=== PATIENT | male | born 1990 | race Caucasian/White ===

== ENCOUNTER 2017-07-17 08:13 | Emergency (ER) | payer OTHER ==
--- NOTE | 2017-07-17 10:06 | UC ---
Rectal Pain HPI - HPI Summary HPI Summary: Pt presents with anal pain and BRBPR. Over the last 5-6 months he has had anal pain and thinks he has hemorrhoids. He has been managing this with OTC creams. Over the last 5 days he has noticed bright red blood on the tissue paper after wiping when having a BM. His BMs have been usual for him, not hard and rarely strains. He does have a family history of colon cancer. He denies pain, fever, chills, SOB, chest pain, abdominal pain, n/v/d/c, or body aches - History Of Current Complaint Chief Complaint: UCGeneralIllness Stated Complaint: RECTAL PAIN Time Seen by Provider: 07/17/17 10:05 Hx Obtained From: Patient Timing: Constant Severity Initially: Mild Severity Currently: Mild Pain Intensity: 2 Pain Scale Used: 0-10 Numeric - Allergies/Home Medications Allergies/Adverse Reactions: Allergies Allergy/AdvReac Type Severity Reaction Status Date / Time Penicillins Allergy Unknown Unknown Verified 07/17/17 08:29 Reaction Details PMH/Surg Hx/FS Hx/Imm Hx Previously Healthy: Yes - Surgical History Surgical History: Yes Surgery Procedure, Year, and Place: BENIGN GROWTH ON CHEST REMOVED 2009. appendix at age 10 - Social History Occupation: Employed Full-time Lives: Alone Alcohol Use: Rare Substance Use Type: None Smoking Status (MU): Never Smoked Tobacco - Immunization History Most Recent Influenza Vaccination: not this year Review of Systems Constitutional: Negative Skin: Negative Respiratory: Negative Cardiovascular: Negative Gastrointestinal: Negative All Other Systems Reviewed And Are Negative: Yes Physical Exam Triage Information Reviewed: Yes Appearance: Well-Appearing, No Pain Distress, Well-Nourished Vital Signs: Initial Vital Signs Temp 97.5 F 07/17/17 08:30 Pulse 74 07/17/17 08:30 Resp 16 07/17/17 08:30 BP 144/81 07/17/17 08:30 Pulse Ox 100 07/17/17 08:30 Vital Signs Reviewed: Yes Respiratory: Positive: Chest non-tender, Lungs clear, Normal breath sounds Cardiovascular: Positive: RRR, No Murmur, Pulses Normal Abdomen Description: Positive: Nontender, No Organomegaly, Soft. Negative: CVA Tenderness (R), CVA Tenderness (L), Distended, Guarding Bowel Sounds: Positive: Present Neurological: Positive: Alert Psychological: Positive: Age Appropriate Behavior - Additional Comments Rectal exam: ~4mm external hemorrhoid at the 5 o'clock position. ~2mm external hemorrhoid at the 11 o'clock position. Both at TTP. No bleeding. Internal exam revealed no masses, internal hemorrhoids, or stool in the vault. Rectal Pain Course/Dx - Course Course Of Treatment: Hemorrhoids external. Anusol prn. I offered him a referral to general surgery, but he declined as he has a new pt appt with a new pcp coming in 2 weeks and will discuss this and potential further investigation ( colonoscopy) at that time. - Differential Dx/Diagnosis Provider Diagnoses: External hemorrhoid Discharge - Discharge Plan Condition: Stable Disposition: HOME Prescriptions: Hydrocortisone SUPP* [Anusol HC Supp*] 25 mg TX BID PRN #14 supp PRN Reason: pain Patient Education Materials: Hemorrhoids (ED) Referrals: No Primary Care Phys,NOPCP [Primary Care Provider] - Additional Instructions: If you develop a fever, shortness of breath, chest pain, new or worsening symptoms - please call your PCP or go to the ED. Your blood pressure was high at todays visit. Please see your primary provider within 4 weeks for recheck and re-evaluation.
[2017-07-17 10:29] VITALS: BP 127/97
== END 2017-07-17 10:26 | disposition home or self-care (01) ==
LOC: UCEAST 08:13
DX: K64.4 Residual hemorrhoidal skin tags (principal)
CPT/HCPCS: 99202; G0463

== ENCOUNTER 2017-10-13 07:05 | Emergency (ER) | payer OTHER ==
[2017-10-13 07:15] VITALS: BP 130/72
--- NOTE | 2017-10-13 08:23 | RAD ---
INDICATION: Abdominal pain evaluate for perforation. COMPARISON: There are no prior studies available for comparison. TECHNIQUE: Supine and upright views of the abdomen were obtained. FINDINGS: There is a paucity of bowel gas present limiting the study. Air is seen within the stomach which is nondistended. There is a small amount of air within the descending and rectosigmoid colon which are nondistended. No free intraperitoneal air is seen. IMPRESSION: NO EVIDENCE FOR OBSTRUCTION OR FREE INTRAPERITONEAL AIR.
--- NOTE | 2017-10-13 08:46 | UC ---
Brendon Gibbons Rebecca, scribed for [facility],Laz Christian MD on 10/13/17 at 0728 . Abdominal Pain Male HPI - HPI Summary HPI Summary: In Room: Pt is a 27 y/o M who presents to [facility] c/o abdominal pain. Sx began about 2.5 weeks ago, gradually worsening, with the pain initially being described as dull and burning, though this morning it was sharp. Currently, pain is described as cramping and on triage, pain was moderate, ranked 5/10. Pain is located to the left side of the umbilicus, moving up toward the mid- left thorax without radiation to the back. He has no pain with ambulation or jumping in the air, it is unchanged by sitting and aggravated by alcohol. Additionally c/o diarrhea, intermittent nausea and 1 episode of vomiting this morning. Has had diarrhea today and throughout this illness, he has had both diarrhea and normal stool. Denies fever, penile discharge, and blood in stool. No recent travel or abnormal food. 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 Pt was evaluated by his PCP 3 days ago and given a Dx of gastritis with Rx for Ranitidine BID. PSHx yasmine. : 27 year old male. Vital signs stable. BP 130/72, pulse ox 100, temperature 97.8. Rare alcohol, no tobacco, no smoking. Visit history noncontributory. Status post appendicitis. Nurse's: Stomach pain x2 weeks, + nausea, constant diarrhea x2 weeks (4-5 bowel movements a day), went to PCP Sunday, diagnosed with Gastritis given ranitidine with no relief. Started with Nausea today. - History of Current Complaint Chief Complaint: UCAbdominalPain Stated Complaint: ABDOMINAL COMPLAINT Time Seen by Provider: 10/13/17 07:17 Hx Obtained From: Patient Onset/Duration: Lasting Weeks - 2.5 weeks, Still Present Severity Currently: Moderate Pain Intensity: 5 Pain Scale Used: 0-10 Numeric Location: Other - To the left of the umbilicus and moving toward the mid-left thorax. Radiates: No Character: Burning, Cramping - currently, Dull, Sharp - this morning Aggravating Factor(s): Other - Alcohol Alleviating Factor(s): Nothing Associated Signs And Symptoms: Positive: Nausea, Vomiting, Diarrhea - Allergies/Home Medications Allergies/Adverse Reactions: Allergies Allergy/AdvReac Type Severity Reaction Status Date / Time Penicillins Allergy See Comment Verified 10/13/17 07:16 Home Medications: Home Medications raNITIdine HCl [Zantac] 1 tab PO BID 10/13/17 [History Confirmed 10/13/17] PMH/Surg Hx/FS Hx/Imm Hx - Additional Past Medical History Additional PMH: NEGATIVE PMHx: HTN Respiratory History: Asthma - As a child - Surgical History Surgical History: Yes Surgery Procedure, Year, and Place: BENIGN GROWTH ON CHEST REMOVED 2009. appendix at age 10 - Family History Known Family History: Positive: Other - Colon [place] (aunt) - Social History Alcohol Use: Rare Substance Use Type: None Smoking Status (MU): Never Smoked Tobacco - Immunization History Most Recent Influenza Vaccination: not this year Most Recent Tetanus Shot: UTD Review of Systems Constitutional: Negative Skin: Negative Eyes: Negative ENT: Negative Respiratory: Negative Cardiovascular: Negative Gastrointestinal: Abdominal Pain, Vomiting, Diarrhea, Nausea Genitourinary: Negative Motor: Negative Neurovascular: Negative Musculoskeletal: Negative Neurological: Negative Psychological: Negative All Other Systems Reviewed And Are Negative: Yes - Comments Additional Review of Systems Comments: POSITIVE: Abdominal pain, N/V/D. NEGATIVE: Fever, penile discharge, blood in stool. Physical Exam - Summary Physical Exam Summary: Appearance: The patient is well-appearing, is in no pain distress, and is well- nourished. Eyes: Conjunctiva are clear. ENT: The hearing is grossly normal, the pharynx is normal, and the TMs are normal. There is no muffled or hoarse voice. Neck: The neck is supple and there is no lymphadenopathy. Respiratory: The chest is nontender. The lungs are clear, there are normal breath sounds, and there is no respiratory distress. Cardiovascular: Heart is regular rate and rhythm. There is no murmur. Abdomen: Grossly normal to inspection. RLQ appendectomy scar, well healed. Bowel sounds present. Tender to percussion and palpation, left upper quadrant. Negative guarding, rigidity. No peritoneal signs, no CVA tenderness. Bowel sounds: present Musculoskeletal: Strength is intact. The patient moves all extremities. Neurological: The patient is alert. Psychological: The patient displays age appropriate behavior Skin: Negative for rashes. Triage Information Reviewed: Yes Vital Signs: Initial Vital Signs Temp 97.8 F 10/13/17 07:10 Pulse 69 10/13/17 07:10 Resp 18 10/13/17 07:10 BP 130/72 10/13/17 07:10 Pulse Ox 100 10/13/17 07:10 Vital Signs Reviewed: Yes Diagnostics - Radiology Abdomen XR Xray Interpretation: No Acute Changes - NO EVIDENCE FOR OBSTRUCTION OR FREE INTRAPERITONEAL AIR. Radiology Interpretation Completed By: Radiologist Re-Evaluation - Re-Evaluation First Eval Re-Evaluation Time: 08:33 Comment: Discussed XR results with the patient. The patient is comfortable with no acute complaints. Abd Pain Male Course/Dx - Course Course Of Treatment: Pt with abdominal pain, presumed gastritis, on Ranitidine for 3 days. Pain has stayed the same or increased. He also has diarrhea and some nausea. His abdominal XR shows no perforation or obstruction. It may be that he has not been on the Ranitidine long enough, but I am going to assume that this is a failure of Ranitidine, BID, and start him on a PPI. He has been instructed to go to the ER for any increased symptoms and to follow up with his doctor for possible referral to a GI for further evaluation and treatment as needed. Patient is Urgent/Emergent. BP elevated due to current condition w/o HTN in past medical history. Medications have been included in the original chart and reviewed. Allergy noted. - Differential Dx/Clinical Impression Differential Diagnosis/HQI/PQRI: Other - Gastritis, ulcer, GERD Provider Diagnoses: Gastritis Discharge - Sign-Out/Discharge Documenting (check all that apply): Discharge - Discharge - Discharge Plan Condition: Stable Disposition: HOME Prescriptions: Omeprazole CAP* [Prilosec CAP* 20 MG] 20 mg PO DAILY #30 cap.dr [place] 1 Patient Education Materials: Peptic Ulcer (ED), Gastritis (ED) Referrals: No Primary Care Phys,NOPCP [Primary Care Provider] - Additional Instructions: Your blood pressure reading today was 130/72, indicating PREHYPERTENSION. Follow -up with your primary care provider within 4 weeks for blood pressure readings and further evaluation, IF NEEDED. PLEASE SEEK CARE AT THE EMERGENCY DEPARTMENT IF SYMPTOMS WORSEN OR IF NEW SYMPTOMS DEVELOP. FOLLOW UP WITH YOUR PRIMARY CARE PHYSICIAN. WE DISCUSSED: 1. You have excess acid in your stomach. You may have gastritis or an ulcer. You may need to be seen by a specialist to diagnose this. 2. Begin prilosec, once a day for 30 days. If you have continued pain, you may need to increase this dose after consulting with your doctor. 3. Follow up with your doctor within the next 4 weeks. Sooner if increased pain or if you're not improving in 2 weeks. Also recheck for continued diarrhea in 7 days. 4. Try antacid after meals. 5. Go to ED for increased symptoms, blood in stool, temperature, abdominal pain. - Billing Disposition and Condition Condition: STABLE Disposition: HOME The documentation as recorded by the Brendon mckeon Rebecca accurately reflects the service I personally performed and the decisions made by me, Laz Caro MD.
== END 2017-10-13 08:50 | disposition home or self-care (01) ==
LOC: UCEAST 07:05
DX: K29.70 Gastritis, unspecified, without bleeding (principal); Z88.0 Allergy status to penicillin
CPT/HCPCS: 74019; 99212; G0463

== ENCOUNTER 2017-10-23 11:49 | Emergency (ER) | payer OTHER ==
[2017-10-23 12:01] VITALS: BP 124/82
--- NOTE | 2017-10-23 13:12 | UC ---
Abdominal Pain Male HPI - HPI Summary HPI Summary: Patient presents with about 4 weeks of crampy left lower quadrant pain and intermittent watery diarrhea. Patient was seen here 10 days ago and given omeprazole which patient states worked for a few days. Prior to that he was seen by his PCP and given ranitidine. Patient reports he was diagnosed with gastritis and has tried to modify his diet but his symptoms are persistent. He feels gassy. Denies fever or vomiting but does have some nausea. Bowel movements are sometimes normal and sometimes watery. No blood per rectum. He has an appointment with his PCP tomorrow but decided to come in today for earlier eval. - History of Current Complaint Chief Complaint: UCAbdominalPain Stated Complaint: ABD PAIN Time Seen by Provider: 10/23/17 13:10 Hx Obtained From: Patient Onset/Duration: Gradual Onset, Lasting Weeks, Still Present Severity Initially: Moderate Severity Currently: Moderate Pain Intensity: 4 Pain Scale Used: 0-10 Numeric Location: Discrete At: LLQ Radiates: No Character: Cramping Aggravating Factor(s): Food Alleviating Factor(s): Nothing Associated Signs And Symptoms: Positive: Decreased Appetite, Nausea, Diarrhea. Negative: Fever, Back Pain, Constipation, Blood in Stool, Urinary Symptoms, Vomiting, Penile Discharge - Allergies/Home Medications Allergies/Adverse Reactions: Allergies Allergy/AdvReac Type Severity Reaction Status Date / Time Penicillins Allergy See Comment Verified 10/13/17 07:16 PMH/Surg Hx/FS Hx/Imm Hx Respiratory History: Asthma - Surgical History Surgical History: Yes Surgery Procedure, Year, and Place: BENIGN GROWTH ON CHEST REMOVED 2009. appendix at age 10 - Family History Known Family History: Positive: Other - Colon [place] (aunt) Family History: MATERNAL SIDE UNKNOWN - Social History Alcohol Use: Rare Substance Use Type: None Smoking Status (MU): Never Smoked Tobacco - Immunization History Most Recent Influenza Vaccination: not this year Most Recent Tetanus Shot: UTD Review of Systems Constitutional: Negative Respiratory: Negative Cardiovascular: Negative Gastrointestinal: Abdominal Pain, Diarrhea, Nausea Genitourinary: Negative All Other Systems Reviewed And Are Negative: Yes Physical Exam Triage Information Reviewed: Yes Appearance: Well-Appearing, No Pain Distress, Well-Nourished Vital Signs: Initial Vital Signs Temp 97.8 F 10/23/17 11:55 Pulse 68 10/23/17 11:55 Resp 18 10/23/17 11:55 BP 124/82 10/23/17 11:55 Pulse Ox 100 10/23/17 11:55 Vital Signs Reviewed: Yes Eyes: Positive: Conjunctiva Clear ENT: Positive: Hearing grossly normal Neck: Positive: Supple Respiratory Exam: Normal Cardiovascular Exam: Normal Abdomen Description: Positive: Soft, Other: - MILDLY TTP LLQ. NO REBOUND OR RIGIDITY. Negative: CVA Tenderness (R), CVA Tenderness (L), Distended, Guarding Bowel Sounds: Positive: Hyperactive Musculoskeletal: Positive: No Edema Neurological: Positive: Alert Psychological: Positive: Age Appropriate Behavior Skin: Negative: rashes Abd Pain Male Course/Dx - Differential Dx/Clinical Impression Provider Diagnoses: 1. ABDOMINAL PAIN, NOS. 2. DIARRHEA Discharge - Sign-Out/Discharge Documenting (check all that apply): Discharge - Discharge Plan Condition: Stable Disposition: HOME Patient Education Materials: Abdominal Pain (ED) Referrals: Mahnaz Camacho MD [Medical Doctor] - (keep ypur appt tomorrow) Additional Instructions: Stool kit provided today. Bring a sample in for testing. In the meantime call GI to schedule an appointment for follow-up. You would likely benefit from specialist evaluation and possibly imaging/endoscopy. ENSURE ADEQUATE HYDRATION. CLEAR LIQUIDS, BLAND DIET. AVOID CAFFEINE, DAIRY, GREASY, SPICY FOODS. [facility] Address: [address], [place] [address] - Billing Disposition and Condition Condition: STABLE Disposition: HOME
== END 2017-10-23 13:40 | disposition home or self-care (01) ==
LOC: UCEAST 11:49
DX: R10.32 Left lower quadrant pain (principal); R19.7 Diarrhea, unspecified; J45.909 Unspecified asthma, uncomplicated; Z88.0 Allergy status to penicillin
CPT/HCPCS: 99211; G0463